=== PATIENT | male | born 1945 | race African-American/Black ===

== ENCOUNTER 2020-10-01 10:45 | Observation (INO) ==
[2020-10-01] MEDS ORDERED: Ondansetron 4 MG/2 ML VIAL IVP ONE ×2 (10:48→13:12)
[2020-10-01] MEDS ORDERED: 0.9 % Sodium Chloride 1,000 ML IVC ONE (10:48)
[2020-10-01 11:17] LABS: VBG HCO3 33 mEq/L (21-27); VBG PCO2 64 mmHg (41-51); VBG PH 7.32 pH Units (7.32-7.42); VBG PO2 46 mmHg (25-50)
[2020-10-01] MEDS ORDERED: Isovue-370 500 ML BOTTLE IVP ONE (11:17)
[2020-10-01 11:18] LABS: Basophils % 0.4 %; Eosinophils # 0.3 K/mcL (0.0-0.6); Eosinophils % 6.4 %; Hematocrit 37.7 % (37.5-50.1); Hemoglobin 12.8 g/dL (12.9-16.9); Lymphocytes # 0.6 K/mcL (0.6-4.6); Lymphocytes % 12.2 %; Mean Corpuscular Hemoglobin 31.8 pg (28.0-33.3); Mean Corpuscular Volume 93.5 fL (83.0-100.0); Mean Platelet Volume 9.9 fL (9.4-12.4); Monocytes # 0.4 K/mcL (0.0-1.3); Monocytes % 8.4 %; Neutrophils # 3.6 K/mcL (1.6-8.9); Platelet Count 144 K/mcL (140-400); Red Blood Count 4.03 M/mcL (4.19-5.50); Red Cell Distribution Width 14.1 % (11.5-14.5); Segmented Neutrophils % 71.6 %
[2020-10-01 11:35] LABS: Alanine Aminotransferase 17 Units/L (7-52); Albumin 4.1 g/dL (3.5-5.7); Albumin/Globulin Ratio 1.3 (1.1-2.2); Alkaline Phosphatase 103 Units/L (34-104); Aspartate Amino Transferase 15 Units/L (13-39); BUN/Creatinine Ratio 20 (6-26); Bilirubin,Total 0.7 mg/dL (0.3-1.0); Blood Urea Nitrogen 26 mg/dL (8-23); Calcium 9.7 mg/dL (8.6-10.3); Carbon Dioxide 30 mEq/L (23-29); Chloride 103 mEq/L (98-107); Globulin 3.1 g/dL (2.4-3.5); Glucose 260 mg/dL (70-105); Osmolality,Calculated 306 (280-300); Potassium 3.8 mEq/L (3.5-5.1); Sodium 141 mEq/L (136-145); Total Protein 7.2 g/dL (6.4-8.9); Troponin I < 0.03 ng/mL (< 0.04); eGFR For African Americans > 60 (> 60); eGFR For Non-African Americans 54 (> 60)
[2020-10-01 11:56] LABS: Bilirubin,Urine Negative (Negative); Blood,Urine Negative (Negative); Clarity,Urine Clear (Clear); Color,Urine Light-Yellow (Yellow); Glucose,Urine (UA) Normal (Normal); Ketones,Urine Negative (Negative); Leukocyte Esterase,Urine Negative (Negative); Nitrite,Urine Negative (Negative); PH,Urine 6.5 pH Units (5.0-8.0); Protein,Urine Trace mg/dL (Neg-Trace); Specific Gravity,Urine 1.017 (1.010-1.025); Urobilinogen,Urine Normal (Normal)
[2020-10-01] MEDS ORDERED: Azithromycin 500 MG in 0.9 % Sodium Chloride 250 ML IVPB ONE (13:00)
[2020-10-01] MEDS ORDERED: cefTRIAXone 1,000 MG in Water for inj. (sterile) 10 ML IVP ONE (13:00)
[2020-10-01] MEDS ORDERED: Naloxone 0.4 MG/ML INJ IVP PRN (16:42)
[2020-10-01] MEDS ORDERED: Dextrose Gel 15 GM/37.5 ML TUBE PO PRN ×2 (16:47)
[2020-10-01] MEDS ORDERED: D5% in Water 1,000 ML IVC PRN (16:47)
[2020-10-01] MEDS ORDERED: *HR* Dextrose 50 % in Water (Vial) 50 ML VIAL IVP PRN (16:47)
[2020-10-01] MEDS: Insulin LISPRO 300 UNITS/3 ML VIAL SQ SCH ×2 (17:53→23:59)
[2020-10-01] MEDS: Famotidine 20 MG/2 ML VIAL IVP SCH (18:16)
[2020-10-01] MEDS: Prochlorperazine 10 MG/2 ML VIAL IVP PRN (18:17)
[2020-10-01] MEDS ORDERED: Acetaminophen 325 MG TABLET PO ONE (19:06)
[2020-10-01] MEDS: *HR* Heparin 5,000 UNIT/ML VIAL SQ SCH (22:24)
[2020-10-01] MEDS: traZODone 50 MG TABLET PO SCH (22:25)
[2020-10-01] MEDS: *HR* HYDROcodone/Acet 5/325 mg TABLET PO PRN (22:26)
[2020-10-01] MEDS: Pregabalin 50 MG CAPSULE PO SCH (22:26)
[2020-10-02] MEDS: Insulin LISPRO 300 UNITS/3 ML VIAL SQ SCH ×3 (05:34→18:28)
[2020-10-02] MEDS: *HR* Heparin 5,000 UNIT/ML VIAL SQ SCH ×3 (06:12→21:47)
[2020-10-02] MEDS: Famotidine 20 MG/2 ML VIAL IVP SCH (06:12)
[2020-10-02] MEDS: *HR* HYDROcodone/Acet 5/325 mg TABLET PO PRN ×3 (06:39→23:45)
[2020-10-02 08:21] LABS: Hematocrit 37.1 % (37.5-50.1); Hemoglobin 12.3 g/dL (12.9-16.9); Mean Corpuscular HGB Conc 33.2 g/dL (31.6-35.5); Mean Corpuscular Hemoglobin 31.9 pg (28.0-33.3); Mean Corpuscular Volume 96.4 fL (83.0-100.0); Platelet Count 144 K/mcL (140-400); Red Blood Count 3.85 M/mcL (4.19-5.50); Red Cell Distribution Width 14.2 % (11.5-14.5); White Blood Count 4.6 K/mcL (4.3-11.1)
[2020-10-02] MEDS: Lactobacillus 1 EACH CAP.SPRINK PO SCH (08:34)
[2020-10-02] MEDS: allopurinoL 100 MG TABLET PO SCH (08:35)
[2020-10-02] MEDS: Pregabalin 50 MG CAPSULE PO SCH ×2 (08:35→21:47)
[2020-10-02] MEDS: Aspirin Enteric Coated 81 MG Tablet PO SCH (08:35)
[2020-10-02] MEDS: Cyanocobalamin (B-12) 1,000 MCG TABLET PO SCH (08:35)
[2020-10-02] MEDS: Furosemide 40 MG TABLET PO SCH (08:37)
[2020-10-02 08:40] LABS: BUN/Creatinine Ratio 20 (6-26); Blood Urea Nitrogen 25 mg/dL (8-23); Calcium 9.3 mg/dL (8.6-10.3); Carbon Dioxide 27 mEq/L (23-29); Chloride 105 mEq/L (98-107); Chol/HDL Ratio 4.5 (0-4.9); Cholesterol 143 mg/dL (< 200); Glucose 142 mg/dL (70-105); HDL Cholesterol 32 mg/dL (40-59); LDL Cholesterol,Calculated 82 mg/dL (< 100); Magnesium 1.6 mg/dL (1.6-2.6); Osmolality,Calculated 297 (280-300); Phosphorous 3.4 mg/dL (2.7-4.5); Potassium 3.5 mEq/L (3.5-5.1); Sodium 140 mEq/L (136-145); Triglycerides 145 mg/dL (< 150); eGFR For African Americans > 60 (> 60); eGFR For Non-African Americans 56 (> 60)
[2020-10-02 10:38] LABS: Estimated Average Glucose 160 mg/dl
[2020-10-02] MEDS ORDERED: Prochlorperazine 10 MG/2 ML VIAL IVP PRN (12:10)
[2020-10-02] MEDS ORDERED: Ondansetron ODT 4 MG TAB.RAPDIS SL PRN (14:45)
[2020-10-02] MEDS: Prochlorperazine 10 MG/2 ML VIAL IVP PRN (16:03)
[2020-10-02] MEDS ORDERED: Gadolinium Contrast Agent (WT Based) IV PRN (17:59)
[2020-10-02] MEDS: traZODone 50 MG TABLET PO SCH (21:47)
[2020-10-03] MEDS: Insulin LISPRO 300 UNITS/3 ML VIAL SQ SCH ×2 (00:24→05:58)
[2020-10-03 02:54] LABS: BUN/Creatinine Ratio 17 (6-26); Blood Urea Nitrogen 22 mg/dL (8-23); Calcium 9.1 mg/dL (8.6-10.3); Carbon Dioxide 31 mEq/L (23-29); Chloride 102 mEq/L (98-107); Glucose 105 mg/dL (70-105); Osmolality,Calculated 292 (280-300); Potassium 3.1 mEq/L (3.5-5.1); Sodium 139 mEq/L (136-145); eGFR For African Americans > 60 (> 60); eGFR For Non-African Americans 55 (> 60)
[2020-10-03 02:57] LABS: Magnesium 1.7 mg/dL (1.6-2.6)
[2020-10-03 03:09] LABS: Thyroid Stimulating Hormone 1.554 mcIU/mL (0.340-5.600)
[2020-10-03 03:22] LABS: Folate > 22.3 ng/mL (3.0-16.0); Vitamin B12 640 pg/mL (250-1100)
[2020-10-03] MEDS: *HR* Heparin 5,000 UNIT/ML VIAL SQ SCH (05:48)
[2020-10-03 07:39] VITALS: BP 112/66
[2020-10-03] MEDS: allopurinoL 100 MG TABLET PO SCH ×2 (07:49→11:04)
[2020-10-03] MEDS: Lactobacillus 1 EACH CAP.SPRINK PO SCH (07:49)
[2020-10-03] MEDS: Cyanocobalamin (B-12) 1,000 MCG TABLET PO SCH (07:50)
[2020-10-03] MEDS: Furosemide 40 MG TABLET PO SCH (07:50)
[2020-10-03] MEDS: Aspirin Enteric Coated 81 MG Tablet PO SCH (07:50)
[2020-10-03] MEDS: *HR* HYDROcodone/Acet 5/325 mg TABLET PO PRN (07:50)
[2020-10-03] MEDS: Pregabalin 50 MG CAPSULE PO SCH ×2 (07:53→11:05)
[2020-10-03] MEDS ORDERED: Potassium Chloride 40 MEQ, Lidocaine 1% 2 ML in 0.9 % Sodium Chloride 500 ML IVPB ONE (08:00)
[2020-10-03 08:12] LABS: Hematocrit 35.1 % (37.5-50.1); Mean Corpuscular HGB Conc 34.2 g/dL (31.6-35.5); Mean Corpuscular Volume 96.4 fL (83.0-100.0); Mean Platelet Volume 10.7 fL (9.4-12.4); Platelet Count 137 K/mcL (140-400); Red Blood Count 3.64 M/mcL (4.19-5.50); Red Cell Distribution Width 13.7 % (11.5-14.5); White Blood Count 4.1 K/mcL (4.3-11.1)
[2020-10-03] MEDS ORDERED: CarBAMazepine 100 MG TABLET PO SCH (08:49)
== END 2020-10-03 12:50 | disposition home or self-care (01) ==
LOC: EMEROOARM 10:45 → 3BNU 10:45 → SUATTDRO 15:12 → 3BNU 15:58
PROVIDERS: ADMIT Student in an Organized Health Care Education/Training Program; ATTEND Internal Medicine

== ENCOUNTER 2022-06-14 19:31 | Observation (INO) ==
[2022-06-14] MEDS ORDERED: Tdap (Boostrix) Vaccine 0.5 ML SYRINGE IM ONE (20:03)
[2022-06-14] MEDS ORDERED: *HR* HYDROcodone/Acet 5/325 mg TABLET PO ONE (21:14)
[2022-06-15 00:25] LABS: Basophils % 0.4 %; Eosinophils # 0.3 K/mcL (0.0-0.6); Eosinophils % 7.1 %; Hematocrit 34.3 % (37.5-50.1); Hemoglobin 11.1 g/dL (12.9-16.9); Immature Granulocytes % 0.4 % (0-4); Lymphocytes # 0.7 K/mcL (0.6-4.6); Lymphocytes % 16.4 %; Mean Corpuscular HGB Conc 32.4 g/dL (31.6-35.5); Mean Corpuscular Hemoglobin 31.5 pg (28.0-33.3); Mean Corpuscular Volume 97.4 fL (83.0-100.0); Mean Platelet Volume 9.8 fL (9.4-12.4); Monocytes # 0.5 K/mcL (0.0-1.3); Platelet Count 144 K/mcL (140-400); Red Blood Count 3.52 M/mcL (4.19-5.50); Red Cell Distribution Width 13.9 % (11.5-14.5); Segmented Neutrophils % 65.7 %; White Blood Count 4.5 K/mcL (4.3-11.1)
[2022-06-15 00:40] LABS: BUN/Creatinine Ratio 17 (6-26); Blood Urea Nitrogen 20 mg/dL (8-23); Calcium 9.9 mg/dL (8.6-10.3); Carbon Dioxide 31 mEq/L (23-29); Chloride 106 mEq/L (98-107); Glucose 108 mg/dL (70-105); Osmolality,Calculated 293 (280-300); Potassium 4.6 mEq/L (3.5-5.1); Sodium 140 mEq/L (136-145); eGFR For African Americans > 60 (> 60); eGFR For Non-African Americans > 60 (> 60)
[2022-06-15 01:02] LABS: Alkaline Phosphatase 132 Units/L (34-104)
[2022-06-15 01:50] LABS: Influenza A PCR Negative (Negative); Influenza B PCR Negative (Negative); Resp. Syncytial Virus PCR Negative (Negative)
[2022-06-15 01:51] LABS: SARS-CoV-2 by PCR (In House) Negative (Negative)
[2022-06-15] MEDS ORDERED: Dextrose Gel 15 GM/37.5 ML TUBE PO PRN ×2 (03:58)
[2022-06-15] MEDS ORDERED: *HR* Dextrose 50 % in Water (Syg) 50 ML SYRINGE IVP PRN (03:58)
[2022-06-15] MEDS ORDERED: D5% in Water 1,000 ML IVC PRN (03:58)
[2022-06-15] MEDS ORDERED: Acetaminophen 325 MG TABLET PO PRN (04:01)
[2022-06-15] MEDS ORDERED: *HR* OxyCODONE Immed Rel 5 MG TABLET PO PRN (04:01)
[2022-06-15] MEDS ORDERED: Ondansetron 4 MG/2 ML VIAL IVP PRN (04:01)
[2022-06-15] MEDS ORDERED: Naloxone 0.4 MG/ML INJ IVP PRN (04:01)
[2022-06-15 04:36] LABS: Hematocrit 34.2 % (37.5-50.1); Mean Corpuscular HGB Conc 32.2 g/dL (31.6-35.5); Mean Corpuscular Hemoglobin 31.3 pg (28.0-33.3); Mean Corpuscular Volume 97.4 fL (83.0-100.0); Mean Platelet Volume 9.3 fL (9.4-12.4); Platelet Count 145 K/mcL (140-400); Red Blood Count 3.51 M/mcL (4.19-5.50); White Blood Count 4.4 K/mcL (4.3-11.1)
[2022-06-15 05:02] LABS: % Iron Saturation 16 % (20-55); BUN/Creatinine Ratio 17 (6-26); Blood Urea Nitrogen 19 mg/dL (8-23); Calcium 9.8 mg/dL (8.6-10.3); Carbon Dioxide 30 mEq/L (23-29); Chloride 106 mEq/L (98-107); Chol/HDL Ratio 3.6 (0-4.9); Cholesterol 149 mg/dL (< 200); Glucose 109 mg/dL (70-105); HDL Cholesterol 41 mg/dL (40-59); Iron 54 mcg/dL (65-175); LDL Cholesterol,Calculated 88 mg/dL (< 100); Osmolality,Calculated 293 (280-300); Potassium 4.2 mEq/L (3.5-5.1); Sodium 140 mEq/L (136-145); Transferrin 245 mg/dL (203-362); Triglycerides 102 mg/dL (< 150); Uric Acid 5.2 mg/dL (2.3-7.6); eGFR For African Americans > 60 (> 60); eGFR For Non-African Americans > 60 (> 60)
[2022-06-15 05:05] LABS: Magnesium 1.8 mg/dL (1.6-2.6)
[2022-06-15 05:11] LABS: Thyroid Stimulating Hormone 2.482 mcIU/mL (0.340-5.600)
[2022-06-15 05:17] LABS: Ferritin 13 ng/mL (20-250)
[2022-06-15 05:21] LABS: Vitamin B12 573 pg/mL (250-1100)
[2022-06-15 05:25] LABS: Vitamin D 25 Hydroxy 46 ng/mL (30-80)
[2022-06-15 05:56] LABS: Estimated Average Glucose 123 mg/dl; Hemoglobin A1C 5.9 %
[2022-06-15] MEDS ORDERED: CarBAMazepine XR (12 hr) 100 MG TAB PO SCH (06:00)
[2022-06-15] MEDS: *HR* HYDROcodone/Acet 5/325 mg TABLET PO PRN (06:57)
[2022-06-15] MEDS: Insulin LISPRO 300 UNITS/3 ML VIAL SUBQ SCH ×5 (07:55→21:44)
[2022-06-15] MEDS: Cholecalciferol (D-3) 1,000 UNIT (25MCG) TABLET PO SCH (08:02)
[2022-06-15] MEDS: Furosemide 40 MG TABLET PO SCH (08:02)
[2022-06-15] MEDS: allopurinoL 100 MG TABLET PO SCH (08:02)
[2022-06-15] MEDS: Aspirin Enteric Coated 81 MG Tablet PO SCH (08:02)
[2022-06-15] MEDS: Cyanocobalamin (B-12) 1,000 MCG TABLET PO SCH (08:02)
[2022-06-15] MEDS: Propranolol LA (24 HR) 60 MG CAP.SA.24H PO SCH (08:03)
[2022-06-15] MEDS: Lisinopril-HCTZ 20-12.5mg TABLET PO SCH (08:03)
[2022-06-15] MEDS ORDERED: Fluticasone Propionate Nasal 50 MCG/SPRAY BOTTLE NS PRN (12:51)
[2022-06-15] MEDS: *HR* Heparin 5,000 UNIT/ML VIAL SQ SCH (18:02)
[2022-06-15] MEDS: Primidone 50 MG TABLET PO SCH (18:31)
[2022-06-15] MEDS: CarBAMazepine XR (12 hr) 100 MG TAB PO SCH (20:13)
[2022-06-16] MEDS: *HR* Heparin 5,000 UNIT/ML VIAL SQ SCH ×2 (05:26→17:40)
[2022-06-16] MEDS: Insulin LISPRO 300 UNITS/3 ML VIAL SUBQ SCH ×4 (08:24→21:05)
[2022-06-16] MEDS: Lisinopril-HCTZ 20-12.5mg TABLET PO SCH (09:57)
[2022-06-16] MEDS: Furosemide 40 MG TABLET PO SCH (09:58)
[2022-06-16] MEDS: Aspirin Enteric Coated 81 MG Tablet PO SCH (09:58)
[2022-06-16] MEDS: Cyanocobalamin (B-12) 1,000 MCG TABLET PO SCH (09:58)
[2022-06-16] MEDS: Propranolol LA (24 HR) 60 MG CAP.SA.24H PO SCH (09:58)
[2022-06-16] MEDS: allopurinoL 100 MG TABLET PO SCH (09:58)
[2022-06-16] MEDS: Cholecalciferol (D-3) 1,000 UNIT (25MCG) TABLET PO SCH (09:58)
[2022-06-16] MEDS: CarBAMazepine XR (12 hr) 100 MG TAB PO SCH ×2 (10:06→21:04)
[2022-06-16] MEDS: Primidone 50 MG TABLET PO SCH (17:40)
[2022-06-17] MEDS: *HR* Heparin 5,000 UNIT/ML VIAL SQ SCH ×2 (05:54→17:10)
[2022-06-17] MEDS: Lisinopril-HCTZ 20-12.5mg TABLET PO SCH (08:40)
[2022-06-17] MEDS: Cholecalciferol (D-3) 1,000 UNIT (25MCG) TABLET PO SCH (08:40)
[2022-06-17] MEDS: Propranolol LA (24 HR) 60 MG CAP.SA.24H PO SCH (08:41)
[2022-06-17] MEDS: allopurinoL 100 MG TABLET PO SCH (08:41)
[2022-06-17] MEDS: Aspirin Enteric Coated 81 MG Tablet PO SCH (08:41)
[2022-06-17] MEDS: Furosemide 40 MG TABLET PO SCH (08:41)
[2022-06-17] MEDS: Cyanocobalamin (B-12) 1,000 MCG TABLET PO SCH (08:41)
[2022-06-17] MEDS: CarBAMazepine XR (12 hr) 100 MG TAB PO SCH ×2 (08:41→21:41)
[2022-06-17] MEDS: Insulin LISPRO 300 UNITS/3 ML VIAL SUBQ SCH ×4 (08:55→21:44)
[2022-06-17] MEDS: Primidone 50 MG TABLET PO SCH (17:10)
[2022-06-17] MEDS: *HR* HYDROcodone/Acet 5/325 mg TABLET PO PRN (20:44)
[2022-06-18] MEDS: *HR* Heparin 5,000 UNIT/ML VIAL SQ SCH (05:59)
[2022-06-18] MEDS: Propranolol LA (24 HR) 60 MG CAP.SA.24H PO SCH (08:50)
[2022-06-18] MEDS: Cholecalciferol (D-3) 1,000 UNIT (25MCG) TABLET PO SCH (08:50)
[2022-06-18] MEDS: allopurinoL 100 MG TABLET PO SCH (08:50)
[2022-06-18] MEDS: CarBAMazepine XR (12 hr) 100 MG TAB PO SCH (08:50)
[2022-06-18] MEDS: Furosemide 40 MG TABLET PO SCH (08:50)
[2022-06-18] MEDS: Aspirin Enteric Coated 81 MG Tablet PO SCH (08:50)
[2022-06-18] MEDS: Cyanocobalamin (B-12) 1,000 MCG TABLET PO SCH (08:51)
[2022-06-18] MEDS: Insulin LISPRO 300 UNITS/3 ML VIAL SUBQ SCH ×2 (08:51→11:39)
[2022-06-18] MEDS: Lisinopril-HCTZ 20-12.5mg TABLET PO SCH (08:51)
[2022-06-18 12:15] LABS: Influenza A PCR Negative (Negative); Influenza B PCR Negative (Negative); Resp. Syncytial Virus PCR Negative (Negative)
[2022-06-18 12:15] LABS: Kappa Qnt Free Light Chains 36.23 mg/L (3.30-19.40); Lambda Qnt Free Light Chains 25.45 mg/L (5.71-26.30)
[2022-06-18 12:37] LABS: SARS-CoV-2 by PCR (In House) Negative (Negative)
[2022-06-18 15:26] VITALS: BP 105/69; PULSE 67; TEMP 97.9; O2SAT 95
== END 2022-06-18 16:19 ==
LOC: EMEROOARM 19:31 → 3ANU 19:31 → SUATTDRO 06-15 13:15 → 3ANU 06-15 14:48
PROVIDERS: ADMIT Internal Medicine; ATTEND Internal Medicine

== ENCOUNTER 2022-07-16 15:15 | Inpatient (IN) ==
[2022-07-16] MEDS ORDERED: Ipratropium/Albuterol Neb 3 ML IH ONE (15:25)
[2022-07-16] MEDS ORDERED: Azithromycin 500 MG in 0.9 % Sodium Chloride 250 ML IVPB ONE (15:25)
[2022-07-16] MEDS ORDERED: cefTRIAXone 1,000 MG in 0.9 % Sodium Chloride 10 ML IVP ONE (15:25)
[2022-07-16] MEDS ORDERED: methylPREDNISolone 125 MG/2 ML VIAL IVP ONE (15:25)
[2022-07-16 15:40] LABS: Basophils % 0.3 %; Eosinophils # 0.3 K/mcL (0.0-0.6); Eosinophils % 4.2 %; Hematocrit 36.7 % (37.5-50.1); Immature Granulocytes % 0.5 % (0-4); Lymphocytes # 0.5 K/mcL (0.6-4.6); Lymphocytes % 7.3 %; Mean Corpuscular HGB Conc 32.7 g/dL (31.6-35.5); Mean Corpuscular Hemoglobin 30.8 pg (28.0-33.3); Mean Corpuscular Volume 94.3 fL (83.0-100.0); Mean Platelet Volume 10.1 fL (9.4-12.4); Monocytes # 0.4 K/mcL (0.0-1.3); Monocytes % 6.9 %; Neutrophils # 5.2 K/mcL (1.6-8.9); Platelet Count 141 K/mcL (140-400); Red Blood Count 3.89 M/mcL (4.19-5.50); Red Cell Distribution Width 14.7 % (11.5-14.5); Segmented Neutrophils % 80.8 %; White Blood Count 6.4 K/mcL (4.3-11.1)
[2022-07-16 16:00] LABS: Alanine Aminotransferase 14 Units/L (7-52); Albumin/Globulin Ratio 1.3 (1.1-2.2); Alkaline Phosphatase 146 Units/L (34-104); Aspartate Amino Transferase 15 Units/L (13-39); BUN/Creatinine Ratio 13 (6-26); Bilirubin,Direct 0.1 mg/dL (0.0-0.2); Bilirubin,Indirect 0.3 mg/dL (0.0-1.0); Bilirubin,Total 0.4 mg/dL (0.3-1.0); Blood Urea Nitrogen 14 mg/dL (8-23); Calcium 9.1 mg/dL (8.6-10.3); Carbon Dioxide 29 mEq/L (23-29); Chloride 104 mEq/L (98-107); Globulin 3.1 g/dL (2.4-3.5); Glucose 101 mg/dL (70-105); Osmolality,Calculated 287 (280-300); Potassium 3.6 mEq/L (3.5-5.1); Sodium 138 mEq/L (136-145); Total Protein 7.1 g/dL (6.4-8.9); Troponin I < 0.03 ng/mL (< 0.04)
[2022-07-16] MEDS ORDERED: Furosemide 40 MG in 0.9 % Sodium Chloride 50 ML IV STA (16:47)
[2022-07-16] MEDS ORDERED: Furosemide 40 MG/4 ML VIAL IVP ONE (16:48)
[2022-07-16 17:22] LABS: Influenza A PCR Negative (Negative); Influenza B PCR Negative (Negative); Resp. Syncytial Virus PCR Negative (Negative)
[2022-07-16 18:50] LABS: SARS-CoV-2 by PCR (In House) Negative (Negative)
[2022-07-16] MEDS ORDERED: Naloxone 0.4 MG/ML INJ IVP PRN (19:30)
[2022-07-16] MEDS ORDERED: Acetaminophen 325 MG TABLET PO PRN (19:34)
[2022-07-16] MEDS ORDERED: Melatonin 3 MG TABLET PO PRN (19:34)
[2022-07-16] MEDS ORDERED: Ondansetron 4 MG/2 ML VIAL IVP PRN (19:34)
[2022-07-16] MEDS ORDERED: D5% in Water 1,000 ML IVC PRN (19:39)
[2022-07-16] MEDS ORDERED: *HR* Dextrose 50 % in Water (Syg) 50 ML SYRINGE IVP PRN (19:39)
[2022-07-16] MEDS ORDERED: Dextrose Gel 15 GM/37.5 ML TUBE PO PRN ×2 (19:39)
[2022-07-16] MEDS: Insulin LISPRO 300 UNITS/3 ML VIAL SUBQ SCH (23:32)
[2022-07-17 02:44] LABS: Basophils % 0.1 %; Eosinophils % 0.4 %; Hematocrit 35.2 % (37.5-50.1); Hemoglobin 11.4 g/dL (12.9-16.9); Immature Granulocytes % 0.6 % (0-4); Lymphocytes # 0.5 K/mcL (0.6-4.6); Lymphocytes % 7.4 %; Mean Corpuscular HGB Conc 32.4 g/dL (31.6-35.5); Mean Corpuscular Hemoglobin 30.6 pg (28.0-33.3); Mean Corpuscular Volume 94.6 fL (83.0-100.0); Mean Platelet Volume 10.3 fL (9.4-12.4); Monocytes # 0.3 K/mcL (0.0-1.3); Neutrophils # 6.1 K/mcL (1.6-8.9); Platelet Count 130 K/mcL (140-400); Red Blood Count 3.72 M/mcL (4.19-5.50); Red Cell Distribution Width 14.9 % (11.5-14.5); Segmented Neutrophils % 87.5 %; White Blood Count 6.9 K/mcL (4.3-11.1)
[2022-07-17 03:21] LABS: Calcium 8.8 mg/dL (8.6-10.3); Magnesium 1.8 mg/dL (1.6-2.6); Potassium 3.8 mEq/L (3.5-5.1)
[2022-07-17] MEDS: Insulin LISPRO 300 UNITS/3 ML VIAL SUBQ SCH ×4 (05:26→23:06)
[2022-07-17] MEDS: *HR* Enoxaparin 40 MG/0.4 ML SYRINGE SQ SCH (05:35)
[2022-07-17] MEDS: Furosemide 40 MG/4 ML VIAL IVP SCH ×2 (09:22→17:49)
[2022-07-17] MEDS ORDERED: *HR* HYDROcodone/Acet 5/325 mg TABLET PO PRN (14:37)
[2022-07-17] MEDS: Ipratropium/Albuterol Neb 3 ML IH PRN (14:52)
[2022-07-18] MEDS: *HR* Enoxaparin 40 MG/0.4 ML SYRINGE SQ SCH (05:05)
[2022-07-18 05:16] LABS: Basophils % 0.2 %; Eosinophils # 0.3 K/mcL (0.0-0.6); Eosinophils % 5.8 %; Hematocrit 34.7 % (37.5-50.1); Hemoglobin 11.2 g/dL (12.9-16.9); Immature Granulocytes % 0.7 % (0-4); Lymphocytes # 0.6 K/mcL (0.6-4.6); Lymphocytes % 13.9 %; Mean Corpuscular HGB Conc 32.3 g/dL (31.6-35.5); Mean Corpuscular Volume 96.1 fL (83.0-100.0); Mean Platelet Volume 9.8 fL (9.4-12.4); Monocytes # 0.5 K/mcL (0.0-1.3); Monocytes % 11.9 %; Platelet Count 134 K/mcL (140-400); Red Blood Count 3.61 M/mcL (4.19-5.50); Segmented Neutrophils % 67.5 %; White Blood Count 4.5 K/mcL (4.3-11.1)
[2022-07-18 05:37] LABS: Calcium 9.1 mg/dL (8.6-10.3)
[2022-07-18] MEDS: Insulin LISPRO 300 UNITS/3 ML VIAL SUBQ SCH ×4 (07:28→21:24)
[2022-07-18] MEDS: Ipratropium/Albuterol Neb 3 ML IH PRN ×3 (07:34→19:40)
[2022-07-18] MEDS: Azithromycin 250 MG TABLET PO SCH (13:58)
[2022-07-18] MEDS ORDERED: Fluticasone Propionate Nasal 50 MCG/SPRAY BOTTLE NS PRN (14:36)
[2022-07-18] MEDS: Ammonium Lactate 30 APPL/225 GM BOTTLE TP SCH ×2 (17:45→21:42)
[2022-07-18] MEDS: Propranolol LA (24 HR) 60 MG CAP.SA.24H PO SCH (17:45)
[2022-07-18] MEDS ORDERED: *HR* Dextrose 50 % in Water (Syg) 50 ML SYRINGE IVP PRN (19:18)
[2022-07-18] MEDS ORDERED: Dextrose Gel 15 GM/37.5 ML TUBE PO PRN ×2 (19:18)
[2022-07-18] MEDS ORDERED: D5% in Water 1,000 ML IVC PRN (19:18)
[2022-07-18] MEDS: Primidone 50 MG TABLET PO SCH (21:42)
[2022-07-18] MEDS: CarBAMazepine XR (12 hr) 100 MG TAB PO SCH (21:42)
[2022-07-18] MEDS: GuaiFENesin Liq 200 MG/10 ML UDC PO PRN (21:42)
[2022-07-18] MEDS: Multivit/Ca/Min/Fe/FA 1 TAB TABLET PO SCH (21:42)
[2022-07-18] MEDS: Ascorbic Acid 500 MG TABLET PO SCH (21:42)
[2022-07-19 02:37] LABS: Basophils % 0.2 %; Eosinophils # 0.3 K/mcL (0.0-0.6); Hematocrit 34.8 % (37.5-50.1); Hemoglobin 11.3 g/dL (12.9-16.9); Immature Granulocytes % 0.5 % (0-4); Lymphocytes # 0.6 K/mcL (0.6-4.6); Lymphocytes % 13.7 %; Mean Corpuscular HGB Conc 32.5 g/dL (31.6-35.5); Mean Corpuscular Hemoglobin 31.2 pg (28.0-33.3); Mean Corpuscular Volume 96.1 fL (83.0-100.0); Mean Platelet Volume 9.5 fL (9.4-12.4); Monocytes # 0.4 K/mcL (0.0-1.3); Monocytes % 9.1 %; Neutrophils # 2.9 K/mcL (1.6-8.9); Platelet Count 132 K/mcL (140-400); Red Blood Count 3.62 M/mcL (4.19-5.50); Red Cell Distribution Width 14.7 % (11.5-14.5); Segmented Neutrophils % 69.5 %; White Blood Count 4.2 K/mcL (4.3-11.1)
[2022-07-19 02:54] LABS: Calcium 9.1 mg/dL (8.6-10.3); Potassium 3.9 mEq/L (3.5-5.1)
[2022-07-19] MEDS: GuaiFENesin Liq 200 MG/10 ML UDC PO PRN ×2 (05:00→12:07)
[2022-07-19] MEDS: *HR* Enoxaparin 40 MG/0.4 ML SYRINGE SQ SCH (05:00)
[2022-07-19] MEDS: Insulin LISPRO 300 UNITS/3 ML VIAL SUBQ SCH ×4 (07:48→21:53)
[2022-07-19] MEDS: Cyanocobalamin (B-12) 1,000 MCG TABLET PO SCH (08:41)
[2022-07-19] MEDS: Ascorbic Acid 500 MG TABLET PO SCH ×2 (08:41→21:49)
[2022-07-19] MEDS: Azithromycin 250 MG TABLET PO SCH (08:41)
[2022-07-19] MEDS: allopurinoL 100 MG TABLET PO SCH (08:41)
[2022-07-19] MEDS: Furosemide 40 MG TABLET PO SCH (08:41)
[2022-07-19] MEDS: Primidone 50 MG TABLET PO SCH ×2 (08:41→21:48)
[2022-07-19] MEDS: Multivit/Ca/Min/Fe/FA 1 TAB TABLET PO SCH ×2 (08:41→21:48)
[2022-07-19] MEDS: Cholecalciferol (D-3) 1,000 UNIT (25MCG) TABLET PO SCH (08:41)
[2022-07-19] MEDS: Ammonium Lactate 30 APPL/225 GM BOTTLE TP SCH ×3 (08:42→21:50)
[2022-07-19] MEDS: CarBAMazepine XR (12 hr) 100 MG TAB PO SCH ×2 (08:42→21:47)
[2022-07-19] MEDS: Aspirin Enteric Coated 81 MG Tablet PO SCH (08:42)
[2022-07-19] MEDS: amLODIPine 5 MG TABLET PO SCH (08:42)
[2022-07-19] MEDS: Ipratropium/Albuterol Neb 3 ML IH PRN ×3 (10:00→20:37)
[2022-07-19] MEDS: Propranolol LA (24 HR) 60 MG CAP.SA.24H PO SCH (18:00)
[2022-07-20 05:08] LABS: Basophils % 0.8 %; Eosinophils # 0.3 K/mcL (0.0-0.6); Eosinophils % 7.8 %; Hematocrit 36.3 % (37.5-50.1); Hemoglobin 11.7 g/dL (12.9-16.9); Immature Granulocytes % 0.8 % (0-4); Lymphocytes # 0.7 K/mcL (0.6-4.6); Mean Corpuscular HGB Conc 32.2 g/dL (31.6-35.5); Mean Corpuscular Hemoglobin 31.2 pg (28.0-33.3); Mean Corpuscular Volume 96.8 fL (83.0-100.0); Mean Platelet Volume 10.1 fL (9.4-12.4); Monocytes # 0.4 K/mcL (0.0-1.3); Monocytes % 9.9 %; Neutrophils # 2.4 K/mcL (1.6-8.9); Platelet Count 146 K/mcL (140-400); Red Blood Count 3.75 M/mcL (4.19-5.50); Red Cell Distribution Width 14.7 % (11.5-14.5); Segmented Neutrophils % 63.7 %; White Blood Count 3.8 K/mcL (4.3-11.1)
[2022-07-20] MEDS: *HR* Enoxaparin 40 MG/0.4 ML SYRINGE SQ SCH (05:26)
[2022-07-20 05:28] LABS: Calcium 9.3 mg/dL (8.6-10.3); Potassium 4.2 mEq/L (3.5-5.1)
[2022-07-20] MEDS: Ipratropium/Albuterol Neb 3 ML IH PRN (07:34)
[2022-07-20] MEDS: CarBAMazepine XR (12 hr) 100 MG TAB PO SCH ×2 (08:04→20:48)
[2022-07-20] MEDS: amLODIPine 5 MG TABLET PO SCH (08:05)
[2022-07-20] MEDS: Aspirin Enteric Coated 81 MG Tablet PO SCH (08:05)
[2022-07-20] MEDS: allopurinoL 100 MG TABLET PO SCH (08:06)
[2022-07-20] MEDS: Ascorbic Acid 500 MG TABLET PO SCH ×2 (08:07→20:46)
[2022-07-20] MEDS: Azithromycin 250 MG TABLET PO SCH (08:07)
[2022-07-20] MEDS: Cholecalciferol (D-3) 1,000 UNIT (25MCG) TABLET PO SCH (08:08)
[2022-07-20] MEDS: Primidone 50 MG TABLET PO SCH ×2 (08:08→20:48)
[2022-07-20] MEDS: Cyanocobalamin (B-12) 1,000 MCG TABLET PO SCH (08:09)
[2022-07-20] MEDS: Multivit/Ca/Min/Fe/FA 1 TAB TABLET PO SCH ×2 (08:09→20:47)
[2022-07-20] MEDS: Insulin LISPRO 300 UNITS/3 ML VIAL SUBQ SCH ×4 (08:11→21:50)
[2022-07-20] MEDS: Ammonium Lactate 30 APPL/225 GM BOTTLE TP SCH ×3 (08:13→20:49)
[2022-07-20] MEDS: Propranolol LA (24 HR) 60 MG CAP.SA.24H PO SCH (16:39)
[2022-07-20] MEDS: GuaiFENesin Liq 200 MG/10 ML UDC PO PRN (20:48)
[2022-07-21 03:12] LABS: Basophils % 0.4 %; Eosinophils # 0.3 K/mcL (0.0-0.6); Eosinophils % 5.9 %; Hematocrit 36.2 % (37.5-50.1); Hemoglobin 11.5 g/dL (12.9-16.9); Immature Granulocytes % 0.8 % (0-4); Lymphocytes # 0.7 K/mcL (0.6-4.6); Lymphocytes % 14.4 %; Mean Corpuscular HGB Conc 31.8 g/dL (31.6-35.5); Mean Corpuscular Hemoglobin 30.7 pg (28.0-33.3); Mean Corpuscular Volume 96.5 fL (83.0-100.0); Mean Platelet Volume 9.9 fL (9.4-12.4); Monocytes # 0.5 K/mcL (0.0-1.3); Monocytes % 10.8 %; Neutrophils # 3.2 K/mcL (1.6-8.9); Platelet Count 143 K/mcL (140-400); Red Blood Count 3.75 M/mcL (4.19-5.50); Red Cell Distribution Width 14.6 % (11.5-14.5); Segmented Neutrophils % 67.7 %; White Blood Count 4.7 K/mcL (4.3-11.1)
[2022-07-21 03:32] LABS: Calcium 9.4 mg/dL (8.6-10.3)
[2022-07-21] MEDS: Ipratropium/Albuterol Neb 3 ML IH PRN (05:13)
[2022-07-21] MEDS: *HR* Enoxaparin 40 MG/0.4 ML SYRINGE SQ SCH (05:34)
[2022-07-21] MEDS: Insulin LISPRO 300 UNITS/3 ML VIAL SUBQ SCH ×3 (07:27→17:12)
[2022-07-21] MEDS: Primidone 50 MG TABLET PO SCH (08:06)
[2022-07-21] MEDS: allopurinoL 100 MG TABLET PO SCH (08:06)
[2022-07-21] MEDS: Azithromycin 250 MG TABLET PO SCH (08:07)
[2022-07-21] MEDS: Multivit/Ca/Min/Fe/FA 1 TAB TABLET PO SCH (08:08)
[2022-07-21] MEDS: Cholecalciferol (D-3) 1,000 UNIT (25MCG) TABLET PO SCH (08:08)
[2022-07-21] MEDS: CarBAMazepine XR (12 hr) 100 MG TAB PO SCH (08:09)
[2022-07-21] MEDS: amLODIPine 5 MG TABLET PO SCH (08:10)
[2022-07-21] MEDS: Cyanocobalamin (B-12) 1,000 MCG TABLET PO SCH (08:10)
[2022-07-21] MEDS: Ascorbic Acid 500 MG TABLET PO SCH (08:10)
[2022-07-21] MEDS: Aspirin Enteric Coated 81 MG Tablet PO SCH (08:10)
[2022-07-21] MEDS: Furosemide 40 MG TABLET PO SCH (08:11)
[2022-07-21] MEDS: Ammonium Lactate 30 APPL/225 GM BOTTLE TP SCH ×2 (08:14→13:21)
[2022-07-21 11:04] VITALS: BP 148/67; PULSE 73; TEMP 98.5; O2SAT 95
[2022-07-21 14:56] LABS: Influenza A PCR Negative (Negative); Influenza B PCR Negative (Negative); Resp. Syncytial Virus PCR Negative (Negative)
[2022-07-21 15:00] LABS: SARS-CoV-2 by PCR (In House) Negative (Negative)
[2022-07-21] MEDS: Propranolol LA (24 HR) 60 MG CAP.SA.24H PO SCH (17:13)
== END 2022-07-21 20:02 | DRG 291 ==
LOC: 2NNU 15:15 → EMEROOARM 15:15 → SUATTDRO 18:32 → 3BNU 18:36 → SUATTDRO 22:54
PROVIDERS: ADMIT Pharmacist; ATTEND Internal Medicine